=== PATIENT | female | born 1980 | race Caucasian/White ===

== ENCOUNTER 2016-07-24 12:12 | Emergency (ER) | payer OTHER ==
[~2016-07-24] VITALS: Ht 165.1 cm; Wt 67.0 kg
[~2016-07-24 12:12] MED LIST: NAPR500 PO
[2016-07-24 12:31] VITALS: BP 122/91; PULSE 106; RESP 16; TEMP 98.8; O2SAT 98
[2016-07-24] MEDS ORDERED: TOPA100T11 PO (12:45)
[2016-07-24] MEDS ORDERED: MORPHINE SULFATE 4 MG/ML INJ IM ONE (12:45)
[2016-07-24] MEDS ORDERED: ONDANSETRON ODT 4 MG TAB PO ONE (12:45)
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
[2016-07-24] MEDS ORDERED: CYCL1TAB29 PO (14:13)
[2016-07-24] MEDS ORDERED: IBUP800T23 PO (14:13)
[2016-07-24 14:29] VITALS: BP 134/72; RESP 18
== END 2016-07-24 14:30 | disposition home or self-care (01) ==
LOC: PHEFT 12:12
DX: M79.632 Pain in left forearm (principal); S00.81XD Abrasion of other part of head, subsequent encounter; S80.811D Abrasion, right lower leg, subsequent encounter; S22.49XD Multiple fractures of ribs, unspecified side, subsequent encounter for fracture with routine healing; S80.812D Abrasion, left lower leg, subsequent encounter; S40.81 Abrasion of upper arm; F17.210 Nicotine dependence, cigarettes, uncomplicated; V23.9XXD Unspecified motorcycle rider injured in collision with car, pick-up truck or van in traffic accident, subsequent encounter; Y93.89 Activity, other specified; Y99.9 Unspecified external cause status
CPT/HCPCS: 73080; 73090; 96372; 99283; J2270